=== PATIENT | male | born 1980 | race Two or more races ===

== ENCOUNTER 2023-11-20 00:34 | Emergency (ER) | payer MEDICARE, MEDICAID, SELFPAY ==
--- NOTE | ~2023-11-20 | XR_ITS ---
EXAMINATION: XR HAND, LEFT CLINICAL INFORMATION: Pain. COMPARISON: None available. TECHNIQUE: PA, lateral, and oblique views of the left hand. FINDINGS: The bones and soft tissues are normal. No fracture. Alignment is anatomic. Joint spaces are maintained. No erosions or soft tissue calcifications. XR/XR hand LT min 3V IMPRESSION: No significant abnormality identified.
[2023-11-20 00:36] VITALS: BP 129/78; PULSE 88; RESP 18; TEMP 37.2; O2SAT 100; BMI 22.3
[2023-11-20 00:53] LABS: MANUAL DIFF FLAG NO
[2023-11-20 00:58] LABS: Basophils Absolute Auto 0.1 X10*3/uL (0.0-0.2); Basophils Percent Auto 0.5 % (0-2); Eosinophils Absolute Auto 0.3 X10*3/uL (0.0-0.4); Eosinophils Percent Auto 2.3 % (0-4); Hematocrit 39.6 % (42.0-52.0); Imm Gran Abs Auto 0.04 X10*3/uL (0.00-0.03); Imm Gran Pct Auto 0.4 % (0.0-0.4); Lymphocytes Absolute Auto 3.1 X10*3/uL (1.2-4.9); Lymphocytes Percent Auto 28.9 % (20-40); Mean Corpuscular HGB Conc 32.8 g/dl (31.0-36.0); Mean Corpuscular Hemoglobin 28.3 pg (27.0-33.0); Mean Corpuscular Volume 86.1 fL (80.0-98.0); Mean Platelet Volume 9.6 fL (9.4-12.4); Monocytes Absolute Auto 1.3 X10*3/uL (0.1-1.2); Monocytes Percent Auto 12.2 % (2-11); Neutrophils Percent Auto 55.7 % (45-73); Platelet Count 248 X10*3/uL (160-400); Red Cell Distribution Width 13.6 % (11.0-16.0); White Blood Count 10.7 X10*3/uL (4.8-10.8)
[2023-11-20 01:08] LABS: Alanine Aminotransferase 292 U/L (0-40); Albumin Level 3.8 g/dL (3.5-5.0); Alkaline Phosphatase 69 U/L (39-117); Anion Gap 16 (12-20); Aspartate Amino Transferase 217 U/L (5-37); Bilirubin Total 0.6 mg/dL (0.0-1.0); Blood Urea Nitrogen 16 mg/dL (9-16); Carbon Dioxide 25 mmol/L (22-29); Chloride 101 mmol/L (96-108); Creatinine Clr Calc Pharmacy 99.8; Estimated Glomerular Filt Rate > 60; Glucose Random 100 mg/dL (60-115); Sodium 138 mmol/L (135-145); Total Protein 8.1 g/dL (6.5-8.0)
[2023-11-20 08:54] LABS: C Reactive Protein 0.64 mg/dL (< or = 0.50)
--- NOTE | 2023-11-20 08:59 | ED.GENADULT ---
HPI - General Adult General Chief complaint: Skin/Abscess/Foreign Body Stated complaint: abscess on hand Time Seen by Provider: 11/20/23 07:42 History of Present Illness HPI narrative: The patient is a 43-year-old male who has had redness and swelling in the left hand for about 3 or 4 days. He admits to IV drug use at that location several days ago. He says that he has been on methadone for a long time but has decided to go off methadone. He was trying to detox from methadone when he used heroin a few days ago and subsequently developed an infection in the left hand. He says the infection is in the region where he injected himself. He has had some purulent drainage. No fever, sweats, or chills. He does not feel that he has any symptoms going up the forearm. Related Data Previous Rx's Medication Instructions Recorded cephalexin 500 mg capsule 500 mg PO QID 10 days #40 caps 11/20/23 sulfamethoxazole 800 1 tab PO BID #20 tabs 11/20/23 mg-trimethoprim 160 mg tablet (Bactrim DS) Allergies Allergy/AdvReac Type Severity Reaction Status Date / Time Shellfish Allergy Unknown SWELLING Uncoded 06/16/20 16:52 Review of Systems Review of Systems: Yes all other systems are reviewed and are negative [facility] Social History Social History Advance Directives: No Advance Directives Information Provided: No Physical Exam ED Vital Signs: Vital Signs - 24 hr 11/20/23 00:36 11/20/23 10:00 Temperature 98.9 F 98.0 F Pulse Rate 88 69 Respiratory Rate 18 18 Blood Pressure 129/78 114/63 Pulse Oximetry 100 97 Oxygen Delivery Method Room Air BMI result Body Mass Index 22.3 Const Other: The patient is a somewhat vigorous looking but poorly kempt 43-year-old who seemed very sleepy. He had obvious erythema to the dorsum of the left hand on the radial side of the hand. HENMT Other: Face is symmetrical. Mucous membranes moist. Eyes Other: Pupils are small and equal, conjunctivae Neck Other: Moving his neck easily Resp Effort & Inspection: normal respiratory effort Auscultation: clear to auscultation bilaterally Cardio Other: No murmur appreciated Rate: regular rate Rhythm: regular rhythm Heart sounds: S1 normal heart sound present and S2 normal heart sound present Skin Other: There is erythema and swelling to the dorsum of the radial side of the left hand, essentially on the dorsum of the webspace between the thumb and index finger and extending somewhat towards the thenar eminence. There is a small area in the center of the swelling which exhibited a mild amount of purulent drainage Neuro Other: The patient has intact function of the fingers of the left hand. He seemed sleepy but otherwise neurologically intact Extrem Other: The patient has erythema on the dorsal radial aspect of the left hand at the back of the webspace between the thumb and the index finger with some erythema extending towards the thenar eminence. Despite this he is able to move all the joints of the fingers of the hand and the wrist normally. The erythema does not extend to the forearm. There is no lymphangitic streaking. He does not seem to have any compromise of his joint functions. Medications Administered Discontinued Medications Generic Name Dose Route Start Last Admin Trade Name Freq PRN Reason Stop Dose Admin Cephalexin HCl 1,000 mg 11/20/23 10:26 11/20/23 10:42 Cephalexin 500 Mg Capsule PO 11/20/23 10:27 1,000 mg ONCE ONE Administration Clonidine HCl 0.2 mg 11/20/23 08:58 11/20/23 09:13 Clonidine Hcl 0.2 Mg Tablet PO 11/20/23 08:59 0.2 mg ONCE ONE Administration Protocol Lidocaine HCl 1 appl 11/20/23 08:58 11/20/23 09:13 Lidocaine 4 % Cream Kit TOPICAL 11/20/23 08:59 1 appl ONCE ONE Administration Protocol Lidocaine HCl 2 ml 11/20/23 09:48 11/20/23 10:26 Lidocaine Hcl 1 % 20 Ml Vial INFILTRATI 11/20/23 09:49 2 ml ONCE ONE Administration Trimethoprim/Sulfamethoxazole 1 tab 11/20/23 10:26 11/20/23 10:42 Sulfamethox/Trimeth 800/160 Tablet PO 11/20/23 10:27 1 tab ONCE ONE Administration Medical Decision Making Medical Decision Making MDM Narrative: The patient is a 43-year-old who has a soft tissue infection on the dorsum of the left hand with some associated purulent drainage. The infection seems to be related to injection of heroin a few days ago. Denies fever, sweats, chills. There is no lymphangitis in the left arm. There are no findings to suggest any joint involvement or other surgical process in the hand related to this infection. I performed a bedside ultrasound that showed a small fluid collection near the site of purulent drainage. I then explained to the patient that I thought an incision and drainage procedure might be appropriate. The patient was amenable to this. The skin was prepped with Betadine. Topical anesthesia was attempted with LMX. Once the LM FX had been on for over 20 minutes I then re-prepped the skin with Betadine and injected 1% plain lidocaine in the area I thought most promising. I then made an incision about 2 cm in length with purulent drainage. The patient tolerated the procedure well. My overall impression was that the patient was not septic or toxic. There was no lymphangitis. I felt that this would be an infection which sat management with incision and drainage and oral antibiotics. The patient was given a dose of Bactrim and cephalexin. The purulence from the wound was cultured and sent to the lab. My plan had been to discharge the patient with prescriptions for Bactrim and cephalexin and the patient had seemed amenable to this approach. Unfortunately at the time of discharge the patient was quite sleepy and he became irate after the nurse woke him up. This somewhat threatening and rude and stormed out of the emergency department. His prescriptions had been sent to the pharmacy here at the hospital and it is not clear whether he was able to pick them up. Lab Data 11/20/23 00:48 11/20/23 00:48 Labs: Lab Results 11/20/23 Range/Units 00:48 WBC 10.7 (4.8-10.8) X10*3/uL RBC 4.60 (4.60-5.80) X10*6/uL Hgb 13.0 L (14.0-18.0) g/dl Hct 39.6 L (42.0-52.0) % MCV 86.1 (80.0-98.0) fL MCH 28.3 (27.0-33.0) pg MCHC 32.8 (31.0-36.0) g/dl RDW 13.6 (11.0-16.0) % Plt Count 248 (160-400) X10*3/uL MPV 9.6 (9.4-12.4) fL Immature Gran % (Auto) 0.4 (0.0-0.4) % Neut % (Auto) 55.7 (45-73) % Lymph % (Auto) 28.9 (20-40) % [place] % (Auto) 12.2 H (2-11) % Eos % (Auto) 2.3 (0-4) % Baso % (Auto) 0.5 (0-2) % Lymph # (Auto) 3.1 (1.2-4.9) X10*3/uL [place] # (Auto) 1.3 H (0.1-1.2) X10*3/uL Eos # (Auto) 0.3 (0.0-0.4) X10*3/uL Baso # (Auto) 0.1 (0.0-0.2) X10*3/uL Abs Immat Gran (auto) 0.04 H (0.00-0.03) X10*3/uL Absolute Neuts (auto) 6.0 (2.0-8.3) x10*3/uL Absolute Nucleated RBC 0.000 (0.0-0.012) X10*3/uL Nucleated RBC % (auto) 0.0 (0.0-0.2) /100WBC Sodium 138 (135-145) mmol/L Potassium 4.0 (3.3-5.1) mmol/L Chloride 101 (96-108) mmol/L Carbon Dioxide 25 (22-29) mmol/L Anion Gap 16 (12-20) BUN 16 (9-16) mg/dL Creatinine 0.98 (0.5-1.4) mg/dL Estim Creat Clear Calc 99.8 Estimated GFR > 60 Random Glucose 100 (60-115) mg/dL Calcium 9.0 (8.4-10.2) mg/dL Total Bilirubin 0.6 (0.0-1.0) mg/dL AST 217 H (5-37) U/L ALT 292 H (0-40) U/L Alkaline Phosphatase 69 (39-117) U/L C-Reactive Protein 0.64 H (< or = 0.50) mg/dL Total Protein 8.1 H (6.5-8.0) g/dL Albumin 3.8 (3.5-5.0) g/dL Discharge Plan Discharge Clinical Impression: Cellulitis of left hand excluding fingers and thumb Patient Disposition: Home, Self-Care Instructions: Cellulitis (ED) Additional Instructions: You have been prescribed two antibiotics to treat the infection in your left hand. Cephalexin should be taken 4 times a day, approximately every 6 hours. Sulfamethoxazole-trimethoprim (also known as Bactrim) should be taken 2 times a day, approximately every 12 hours. As much as you are able to try to keep your left hand elevated. If you are able to apply warm compresses to the infected area that can also be helpful. Keep it clean and covered with a Band-Aid. If at any point you feel things are getting worse rather than better please return to the emergency room for another evaluation. Please consider trying to get a primary care doctor. You may try the [facility]. Prescriptions: New sulfamethoxazole-trimethoprim [Bactrim DS] 800-160 mg tablet 1 tab PO BID Qty: 20 0RF cephalexin 500 mg capsule 500 mg PO QID 10 Days Qty: 40 0RF Referrals: [facility] [Provider Group] (left hand cellulitis) Interventions: ED Discharge Assessment Last Done: 11/20/23 11:39 Discharge Date/Time: 11/20/23 11:40
[2023-11-20] MEDS: Lidocaine 4 % Cream KIT 1 APPL TOPICAL (09:13)
[2023-11-20] MEDS: cloNIDine HCL 0.2 MG TABLET PO (09:13)
[2023-11-20 10:00] VITALS: BP 114/63; PULSE 69; RESP 18; TEMP 36.7; O2SAT 97
[2023-11-20] MEDS: Lidocaine HCl 1 % 20 ML VIAL INFILTRATI (10:26)
[2023-11-20] MEDS: cephALEXin 500 MG CAPSULE 1000 MG PO (10:42)
[2023-11-20] MEDS: Sulfamethox/Trimeth 800/160 TABLET 1 TAB PO (10:42)
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
== END 2023-11-20 11:40 | disposition home or self-care (01) ==
PROVIDERS: Emergency Provider Emergency Medicine
DX: L03.114 Cellulitis of left upper limb (principal)
CPT/HCPCS: 10060; 36415; 73130; 80053; 85025; 86140; 87070; 87147; 87205; 99283; 99284

== ENCOUNTER 2023-11-28 04:51 | Emergency (ER) | payer MEDICARE, MEDICAID, SELFPAY ==
[2023-11-28 05:15] VITALS: BP 149/88; PULSE 89; RESP 16; TEMP 36.4; O2SAT 98; BMI 23.7
--- NOTE | 2023-11-28 06:36 | ED_ITS ---
HPI - General Adult General Chief complaint: Dental/Oral Stated complaint: Dental pain Time Seen by Provider: 11/28/23 06:35 Source: patient Mode of arrival: ambulatory Limitations: no limitations History of Present Illness HPI narrative: Patient is a 43 year old assigned male at with no reported medical history presenting to the emergency department today with left lower dental pain. Patient states that over the last 3 days he has had left lower dental pain. Patient denies any dizziness, lightheadedness, abdominal pain, nausea, vomiting, fever, chills, blurry vision, double vision, loss of vision, chest pain, difficulty breathing, shortness of breath, back pain, night sweats, pain with urination, increased urinary frequency, increased urinary urgency, blood in his urine or stool, syncope or a near syncopal episode, recent trauma or falls, bowel incontinence, bladder incontinence, bowel retention, bladder retention, or any other complaints at this time. Onset (ago): day(s) (3) Severity: mild Severity scale (1-10): 3 Quality: aching and dull Pain Consistency: constant Relieving factors: none Exacerbating factors: none Associated symptoms: denies other symptoms Treatments prior to arrival: none Related Data Previous Rx's Medication Instructions Recorded cephalexin 500 mg capsule 500 mg PO QID 10 days #40 caps 11/20/23 sulfamethoxazole 800 1 tab PO BID #20 tabs 11/20/23 mg-trimethoprim 160 mg tablet (Bactrim DS) Allergies Allergy/AdvReac Type Severity Reaction Status Date / Time Shellfish Allergy Unknown SWELLING Uncoded 11/28/23 05:13 Review of Systems 2 Constitutional: Constitutional: Reports no additional constitutional complaints, Denies chills, Denies fever(s) and Denies night sweats Eyes: Eyes: Reports no additional eye complaints, Denies blurry vision, Denies change in vision, Denies diplopia, Denies eye discharge, Denies loss of vision and Denies eye pain ENT: Denies dizziness Comments: left lower dental pain Cardiovascular: Cardiovascular: Reports no additional cardiovascular complaints, Denies chest pain, Denies lightheadedness, Denies Loss of Consciousness and Denies dyspnea Respiratory: Respiratory: Reports no additional respiratory complaints and Denies dyspnea Gastrointestinal: Gastrointestinal: Reports no additional gastrointestinal complaints, Denies abdominal pain, Denies melena, Denies hematochezia, Denies change in bowel habits and Denies change in stool character Genitourinary: Genitourinary: Reports no additional male genitourinary complaints, Denies hematuria, Denies oliguria, Denies difficulty urinating, Denies dysuria, Denies urinary frequency, Denies urinary hesitancy, Denies urinary incontinence and Denies urinary urgency Musculoskeletal: Musculoskeletal: Reports no additional musculoskeletal complaints, Denies numbness and Denies tingling Neurologic: Denies dizziness, Denies loss of vision, Denies numbness and Denies tingling Psychiatric: Psychiatric: Reports no additional psychiatric complaints Endocrine: Endocrine: Reports no additional endocrine complaints Hematologic/Lymphatic: Hematologic/Lymphatic: Reports no additional hematologic/lymphatic complaints Allergic/Immunologic: Allergic/Immunologic: Reports no additional allergic/immunologic complaints PMFSH Past Medical History Attestation statement: The following information was validated with the patient. Source: old records reviewed and nursing notes reviewed Social History Social History Advance Directives: No Advance Directives Information Provided: No Physical Exam ED Vital Signs: Vital Signs - 24 hr 11/28/23 05:15 Temperature 97.6 F Pulse Rate 89 Respiratory Rate 16 Blood Pressure 149/88 H Pulse Oximetry 98 Oxygen Delivery Method Room Air BMI result Body Mass Index 23.7 Const General: cooperative, no acute distress, alert and awake Nutritional Appearance: well nourished Orientation/consciousness: patient oriented x3 Limitations: no limitations HENMT Head: Yes normal to inspection and Yes atraumatic Ears: hearing grossly normal bilaterally and external ears normal General nose exam: Normal external nose present, no nasal discharge noted and no epistaxis Face and sinus: Yes normal facial exam, No abrasion and No laceration Mouth: Normal oral and palatal mucosa present, no drooling and no muffled voice Teeth image: 2 1. dental cavity present Eyes General: appearance normal, both eyes and all related structures Periorbital: periorbital findings normal Eyelids: Yes eyelids normal Conjunctivae: conjunctivae normal Pupils: Equal, round and reactive pupils present EOM: EOMs intact bilaterally Neck Neck: Yes normal visual inspection, Yes full ROM and Yes no lymphadenopathy Chest Chest palpation & inspection: normal inspection of the chest Resp Effort & Inspection: normal respiratory effort and able to speak in complete sentences GI Inspection: Yes normal to inspection Neuro General: patient oriented x3 and moves all extremities Cranial nerves: Yes Equal, round and reactive pupils present Cognition (Neuro): normal cognition Motor exam (neuro): 5/5 motor strength present throughout Sensory Exam: Normal double simultaneous stimulation for sensation Coordination: [id number] test normal Extrem General: Yes normal to inspection, Yes full ROM and Yes capillary refill normal Psych Appearance: grossly normal Mental Status: mental status grossly normal Affect: normal affect Attitude: cooperative Thought process: Normal thought process present Thought content: Normal thought content present Insight: Good insight present (Psych) Medical Decision Making Medical Decision Making MDM Narrative: Patient is a 43 year old assigned male at with no reported medical history presenting to the emergency department today with left lower dental pain. Patient's physical exam showed a left lower dental cavity as well as minimal swelling but no fluctuance. I explained my physical exam findings to the patient. I answered all questions asked by the patient. I stressed the importance of the patient taking his medication as prescribed. I stressed the importance of the patient following up with his primary care provider and a dentist. I stressed the importance of the patient returning to the emergency department immediately if his symptoms were to worsen or if he were to develop any dizziness, shortness of breath, difficulty breathing, chest pain, blurry vision, loss of vision, nausea, vomiting, abdominal pain, fever, chills, back pain, or any other complaints. Patient verbalized agreement and understanding with this treatment plan and discharge. Differential Diagnosis Differential Diagnoses: The differential diagnosis associated with the presentation includes Dental pain Dental abscess Poor dentition Dental cavity Admission/Observation Consideration of admission/observation: Escalation of care including admission/observation considered Patient would have been admitted to the hospital had his clinical presentation warranted hospital admission. Prescription Management I considered prescription management with: Antibiotic (patient prescribed an antibiotic to cover for possible dental abscess) Discharge Plan Discharge Clinical Impression: Dental abscess, Pain, dental Patient Disposition: Home, Self-Care Instructions: Dental Abscess (ED), Toothache (ED) Additional Instructions: Follow up with your primary care provider and a dentist. Return to the emergency department immediately if your symptoms worsen or if you develop any dizziness, shortness of breath, difficulty breathing, chest pain, blurry vision, loss of vision, nausea, vomiting, abdominal pain, fever, chills, back pain, or any other complaints. Call or visit any of the clinics below to establish with a dentist: [facility] [address] [place] [address] [facility] [address] [facility], [address] [address] [place] [address] [facility] [address] [facility] [address] [place] [address] [facility] [address] [place] [address] [place] [address] [place] [address] Prescriptions: No Action sulfamethoxazole-trimethoprim [Bactrim DS] 800-160 mg tablet 1 tab PO BID Qty: 20 0RF cephalexin 500 mg capsule 500 mg PO QID 10 Days Qty: 40 0RF Referrals: [facility] [Provider Group] (Call to establish and follow up with a primary care provider. If you already have a primary care provider, please follow up with them.) [facility] [place] [Provider Group] (Call to establish and follow up with a primary care provider. If you already have a primary care provider, please follow up with them.) [facility] [Provider Group] (Call to establish and follow up with a primary care provider. If you already have a primary care provider, please follow up with them.) Print Language: Tamazight
== END 2023-11-28 06:50 | disposition home or self-care (01) ==
PROVIDERS: Emergency Provider Student in an Organized Health Care Education/Training Program
DX: K04.7 Periapical abscess without sinus (principal)
CPT/HCPCS: 99282; 99284

== ENCOUNTER 2023-11-30 18:45 | Emergency (ER) | payer MEDICARE, MEDICAID, SELFPAY ==
[2023-11-30 18:53] VITALS: BP 129/105; PULSE 102; RESP 18; TEMP 36.6; O2SAT 97; BMI 21.8
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
== END 2023-11-30 19:36 | disposition home or self-care (01) ==
LOC: HO.ED 19:28
PROVIDERS: Emergency Provider Emergency Medicine
DX: S09.90XA Unspecified injury of head, initial encounter (principal); Y00.XXXA Assault by blunt object, initial encounter; Y93.89 Activity, other specified; Y92.9 Unspecified place or not applicable; Y99.9 Unspecified external cause status
CPT/HCPCS: 12002; 99282; 99283

== ENCOUNTER 2023-12-07 01:34 | Emergency (ER) | payer MEDICARE, MEDICAID, SELFPAY ==
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
== END 2023-12-07 02:11 | disposition left against medical advice (07) ==
PROVIDERS: Emergency Provider Emergency Medicine
DX: Z53.21 Procedure and treatment not carried out due to patient leaving prior to being seen by health care provider (principal); Z48.00 Encounter for change or removal of nonsurgical wound dressing

== ENCOUNTER 2025-02-08 18:56 | Emergency (ER) | payer MEDICARE, SELFPAY ==
[2025-02-08 19:07] VITALS: BP 110/79; PULSE 95; RESP 16; TEMP 36.7; O2SAT 97; BMI 24.1
--- NOTE | 2025-02-08 19:08 | ED.GENADULT ---
HPI - General Adult General Chief complaint: General Medical Stated complaint: Needs methadone dose Time Seen by Provider: 02/08/25 19:53 Source: patient Limitations: no limitations History of Present Illness ED Provider: Oksana Reddy PA-C HPI narrative: 44-year-old male with a history of opiate use disorder on methadone presents requesting his dose. He states he missed his medication he last had his dose have BPH and and [place] yesterday. He takes 80 mg of methadone. Related Data Previous Rx's ?Medication ?Instructions ?Recorded cephalexin 500 mg capsule 500 mg PO QID 10 days #40 caps 11/20/23 sulfamethoxazole 800 1 tab PO BID #20 tabs 11/20/23 mg-trimethoprim 160 mg tablet (Bactrim DS) Allergies Allergy/AdvReac Type Severity Reaction Status Date / Time Shellfish Allergy Unknown SWELLING Uncoded 02/08/25 19:08 Review of Systems Review of Systems: Yes all other systems are reviewed and are negative Constitutional: Constitutional: Denies fatigue and Denies fever(s) Cardiovascular: Cardiovascular: Denies chest pain and Denies dyspnea Respiratory: Respiratory: Denies dyspnea Gastrointestinal: Gastrointestinal: Denies abdominal pain, Denies diarrhea, Denies nausea and Denies vomiting Endocrine: Endocrine: Denies fatigue [facility] Past Medical History Attestation statement: The following information was validated with the patient. Social History Social History Advance Directives: No Advance Directives Information Provided: No Do you have a plan to hurt others: No Plan Physical Exam ED Vital Signs: Vital Signs - 24 hr 02/08/25 19:07 Temperature 98.1 F Pulse Rate 95 Respiratory Rate 16 Blood Pressure 110/79 Pulse Oximetry 97 Oxygen Delivery Method Room Air BMI result Body Mass Index 24.1 Const Other: Alert Orientation/consciousness: patient oriented x3 Resp Effort & Inspection: normal respiratory effort Cardio Other: Normal peripheral perfusion Skin Other: Warm dry no rash Neuro General: patient oriented x3, gait normal, no focal motor deficits and CN's II-XI intact bilaterally Psych Other: Cooperative Course Course Course Narrative: RME, this is a rapid medical exam performed by Chan Rowe please refer to primary provider for complete H&P- 44 year old male presents for evaluation of I missed my methadone dose today. He receives his methadone at a [facility] clinic in [place]. He was last dosed yesterday and he reports that he takes 80mg daily. Plan to confirm last dose. Medications Administered Discontinued Medications Generic Name Dose Route Start Last Admin Trade Name Jaden PRN Reason Stop Dose Admin Methadone HCl 80 mg 02/08/25 20:10 02/08/25 20:20 Methadone Hcl 20 Mg/2 Ml Oral.Conc PO 02/08/25 20:11 80 mg ONCE ONE Administration Medical Decision Making Medical Decision Making [facility] Narrative: 44-year-old male with a history of opiate use disorder on methadone presents requesting his dose. He states he missed his medication he last had his dose have [facility] and and [place] yesterday. He takes 80 mg of methadone. Problem: Opiate use disorder History: Per patient I have considered the following differential diagnoses: Needs methadone Plan: his dose was verified we have the dosing letter for him, we will medicate and discharge. Discharge Plan Discharge Clinical Impression: Opiate abuse, continuous Patient Disposition: Home, Self-Care Additional Instructions: You received 80 mg of methadone from this emergency department. Prescriptions: No Action sulfamethoxazole-trimethoprim [Bactrim DS] 800-160 mg tablet 1 tab PO BID Qty: 20 0RF cephalexin 500 mg capsule 500 mg PO QID 10 Days Qty: 40 0RF Print Language: Senegalese
--- NOTE | 2025-02-08 19:21 | PC.NURSE ---
Patient called for his eval and not found in the WR at this time.
--- OUTSIDE RECORDS SUMMARY | 2025-02-08 19:42 | XMS_ITS | Patient Health Record ---
Author Organization [facility] Address [address], [place] [id number] Care Team Providers Care Meeting Manager Name Role Phone No, PCP Primary Care Provider Unavailabl e [facility] Unavailable [phone] Reason For Referral No Information Medications Medication SIG (Take, Route, Frequency, Duration) Notes Start Date End Date Status Minocin 100 mg 1 cap(s) orally every 12 hours. fINISH ALL YOUR MEDICNE EVEN IF YOU FEEL BETTER for 10 day(s) 08/19/2019 Active methadone 10 mg/mL 65 mg orally once a day [facility] Active Immunizations Vaccine Route Administration Date Status Comme nts PPD planted ID Intradermal 10/08/2011 Administered Plan Of Treatment No Information Insurance Providers Payer Name Payer Address Payer Phone Subscriber Number Group Number Insured Name Patient Relationship to Insured Coverage Start Date Coverage End Date [place] Inherited [employer] [address] [facility] [place] [address] [id number] Shailesh Rudd Self - patient is the insured [place] Medicaid Standard [address] [place] [address] [id number] [employer] Shailesh Rudd Self - patient is the insured [employer] [address] [place] [phone] [id number] Shailesh Rudd Self - patient is the insured Medical (General) History Medical History History ICD Code depression and anxiety
--- OUTSIDE RECORDS SUMMARY | 2025-02-08 19:42 | XMS_ITS | Encounter Summary ---
Author Organization [facility] Address [address] [place] [address] Care Team Providers Care Typesetting Machine Operator/Tender Name Role Phone Physician, No Pcp Primary Care Provider Unavaila ble Reason for Visit * Reason Comments Diarrhea FOR ABOUT 2-3 DAYS Encounter Details Date Type Department Care Team (Late st Contact Info) Description 02/07/2025 6:49 PM EDT - 02/07/2025 10:43 PM EDT Emergency [facility] Emergency [address] [place] [address] Diarrhea, unspecified type (Primary Dx) Discharge Disposition: Home or Self Care Social History Tobacco Use Types Packs/Day Years Used Date Smoking Tobacco: Former Cigarettes Q uit: 02/12/2014 Alcohol Use Standard Drinks/Week Comments No 0 (1 standard drink = 0.6 oz pur e alcohol) Sex and Gender Information Value Date Recorded Sex Assigned at Male 12/22/2024 10:05 AM EDT Legal Sex Male 6:17 PM EST Gender Identity Male 12/22/2024 10:05 AM EDT Sexual Orientation Straight 12/22/2024 10 :05 AM EDT documented as of this encounter Last Filed Vital Signs Vital Sign Reading Time Taken Comments Blood Pressure 135/76 02/07/2025 9:16 PM EDT Pulse 77 02/07/2025 9:16 PM EDT Temperature 36.7 ??C (98.1 ??F) 02/07/2025 9:16 PM ED T Respiratory Rate 16 02/07/2025 9:16 PM EDT Oxygen Saturation 97% 02/07/2025 9:16 PM EDT Inhaled Oxygen Concentration - - Weight 75.8 kg (167 lb) 02/07/2025 6:13 PM EDT Height 177.8 cm (5' 10 ) 02/07/2025 6:13 PM EDT Body Mass Index 23.96 02/07/2025 6:13 PM EDT documented in this encounter Functional Status * Are you deaf or do you have serious difficulty hearing? Answer Date of Assessment Author No 02/07/2025 7:08 PM EDT Yesi Haque RN * Are you blind or do you have serious difficulty seeing, even when wearing glasses? Answer Date of Assessment Author No 02/07/2025 7:08 PM EDT Yesi Haque RN * Do you have serious difficulty walking or climbing stairs? Answer Date of Assessment Author No 02/07/2025 7:08 PM EDT Yesi Haque RN * Do you have serious difficulty dressing or bathing? Answer Date of Assessment Author No 02/07/2025 7:08 PM EDT Yesi Haque RN * Because of a physical, mental, or emotional condition, do you have serious difficulty doing errandsalone such as visiting the doctor? Answer Date of Assessment Author No 02/07/2025 7:08 PM EDT Yesi Haque RN documented as of this encounter Mental Status * Because of a physical, mental, or emotional condition, do you have serious difficulty concentrating, remembering, or making decisions? (5 years old or older) Answer Entry Date Author No 02/07/2025 7:08 PM EDT Yesi Haque RN documented in this encounter Discharge Instructions * Discharge Instructions* TASH Cantu - 02/07/2025 10:22 PM EDT Thank you for choosing [facility]'s Emergency Department for your care today. Thankfully your laboratory evaluation and exam today are reassuring, there is no evidence of any acute emergent process associated with your diarrhea. Seeing as your workup was reassuring and you areable to tolerate fluids by mouth, at this time there is no indication for admission to the hospitalor continued ED observation, and it is safe to discharge you home. Please stay well hydrated and get plenty of rest Please follow up with your primary care physician for re-evaluation, additional management of your symptoms, and continued preventative care. If you do not have a primary care physician, please call the [facility] at [phone] [facility] a new primary care physician. Please return to the emergency department if you develop a sudden severe change in your symptoms, afever over 100.4, severe or recurrent vomiting, or a sudden increase in pain or if you experience any other new or worsening symptoms or concerns. * Attachments The following attachments cannot be sent through Care Everywhere. * Diarrhea (Puerto Rican) documented in this encounter Discharge Disposition Disposition Code Departure Means Destination Comment s Home or Self Care documented in this encounter Progress Notes * Brandt Acuna RN - 02/07/2025 6:12 PM EDT Diarrhea abd pain symptoms x 2 day. Pain described as burning. Denies n/v. Denies gu symptoms documented in this encounter Plan of Treatment Not on file documented as of this encounter Procedures Procedure Name Priority Date/Time Associated Diagnosis Comments RESPIRATORY VIRUS PANEL MOLECULAR STUDY STAT 02/07/2025 7:33 PM EDT CBC WITH AUTO DIFFERENTIAL STAT 02/07/2025 6:36 PM EDT CBC AND DIFFERENTIAL STAT 02/07/2025 6:36 PM EDT MAGNESIUM STAT 02/07/2025 6:36 PM EDT LIPASE STAT 02/07/2025 6:36 PM EDT COMPREHENSIVE METABOLIC PANEL STAT 02/07/2025 6:36 PM EDT documented in this encounter Results * Respiratory virus panel molecular study (02/07/2025 7:33 PM EDT) Pathologist [facility] Adenovirus Detection by PCR Not Detected Not Detected LAB MICROBIOLOGY METHOD 02/07/2025 8:27 PM EDT [facility] Influenza A PCR Not Detected Not Detected LAB MICROBIOLOGY METHOD 02/07/2025 8:27 PM EDT [facility] Influenza B PCR Not Detected Not Detected LAB MICROBIOLOGY METHOD 02/07/2025 8:27 PM EDT [facility] Coronavirus 229E Not Detected Not Detected LAB MICROBIOLOGY METHOD 02/07/2025 8:27 PM EDT [facility] Coronavirus HKU1 Not Detected Not Detected LAB MICROBIOLOGY METHOD 02/07/2025 8:27 PM EDT [facility] Coronavirus OC43 Not Detected Not Detected LAB MICROBIOLOGY METHOD 02/07/2025 8:27 PM EDT [facility] Coronavirus NL63 Not Detected Not Detected LAB MICROBIOLOGY METHOD 02/07/2025 8:27 PM EDT [facility] Parainfluenza Virus 1 Not Detected Not Detected LAB MICROBIOLOGY METHOD 02/07/2025 8:27 PM EDT [facility] Parainfluenza Virus 2 Not Detected Not Detected LAB MICROBIOLOGY METHOD 02/07/2025 8:27 PM EDT [facility] Parainfluenza Virus 3 Not Detected Not Detected LAB MICROBIOLOGY METHOD 02/07/2025 8:27 PM EDT [facility] Parainfluenza Virus 4 Not Detected Not Detected LAB MICROBIOLOGY METHOD 02/07/2025 8:27 PM EDT [facility] RSV PCR Not Detected Not Detected LAB MICROBIOLOGY METHOD 02/07/2025 8:27 PM EDT [facility] Human Metapneumovirus A and B Not Detected Not Detected LAB MICROBIOLOGY METHOD 02/07/2025 8:27 PM EDT [facility] Rhinovirus/Entero virus Not Detected Not Detected LAB MICROBIOLOGY METHOD 02/07/2025 8:27 PM EDT [facility] Bordetella pertussis Not Detected Not Detected LAB MICROBIOLOGY METHOD 02/07/2025 8:27 PM EDT [facility] Bordetella parapertussis Not Detected Not Detected LAB MICROBIOLOGY METHOD 02/07/2025 8:27 PM EDT [facility] Mycoplasma pneumo by PCR Not Detected Not Detected LAB MICROBIOLOGY METHOD 02/07/2025 8:27 PM EDT [facility] Chlamydia pneumoniae Not Detected Not Detected LAB MICROBIOLOGY METHOD 02/07/2025 8:27 PM EDT [facility] SARS COV-2 Not Detected Not Detected LAB MICROBIOLOGY METHOD 02/07/2025 8:27 PM EDT [facility] Swab Both anterior nares / Unknown Non-blood Collection / Unknown 02/07/2025 7:33 PM EDT 02/07/2025 7:37 PM EDT Narrative [facility] - 02/07/2025 8:27 PM EDT Testing was performed using the BEW Global Respiratory Pathogen PCR Assay. All results must be correlated with the clinical findings. Results should not be used as the sole basis for diagnosis. False Negative results may occur from the presence of sequence variants in the region targeted by the assay or the presence of inhibitors. Results may be affected by concurrent antiviral/antimicrobial therapy or levels of organisms that are below the limit of detection. [facility] LAB MICROBIOLOGY - GENERAL ORDER IKE Final Result [facility] [address] [place] [address], * (ABNORMAL) CBC auto differential (02/07/2025 6:36 PM EDT) WBC 6.8 4.8 - 10.8 K/mcL LAB HEMETOLOGY METHOD 02/07/2025 7:11 PM EDT [facility] RBC 4.90 4.50 - 5.50 M/mcL LAB HEMETOLOGY METHOD 02/07/2025 7:11 PM EDT [facility] Hemoglobin 13.6 13.5 - 17.5 g/dL LAB HEMETOLOGY METHOD 02/07/2025 7:11 PM EDT [facility] Hematocrit 42.2 42.0 - 54.0 % LAB HEMETOLOGY METHOD 02/07/2025 7:11 PM EDT [facility] MCV 85.4 79.0 - 98.0 FL LAB HEMETOLOGY [facility]07[facility] MCH 27.5 27.0 - 32.0 pcg LAB HEMETOLOGY METHOD [facility]/07[facility]2025 [facility] MCHC 32.2 32.0 - 37.0 g/dL LAB HEMETOLOGY METHOD [facility]07[facility]2025 [facility] RDW 12.8 11.0 - 15.0 % LAB HEMETOLOGY METHOD 02/07/2025 7:11 PM [facility] Platelets 169 130 - 400 K/mcL LAB HEMETOLOGY METHOD 02/07/2025 7:11 PM [facility] MPV 11.5(H) 7.0 - 11.0 FL LAB HEMETOLOGY METHOD 02/07/2025 7:11 PM [facility] NRBC 0.0 <1.0 % LAB HEMETOLOGY METHOD 02/07/2025 7:11 PM [facility] NRBC Absolute 0.00 <0.10 K/mcL LAB HEMETOLOGY METHOD 02/07/2025 7:11 PM [facility] Neutrophils Relative 53.2 % LAB HEMETOLOGY METHOD 02/07/2025 7:11 PM [facility] Lymphocytes Relative 28.7 % LAB HEMETOLOGY METHOD 02/07/2025 7:11 PM [facility] Monocytes Relative 14.9 % LAB HEMETOLOGY METHOD 02/07/2025 7:11 PM [facility] Eosinophils Relative 2.1 % LAB HEMETOLOGY METHOD 02/07/2025 7:11 PM [facility] Basophils Relative 0.7 % LAB HEMETOLOGY METHOD 02/07/2025 7:11 PM EDT [facility] Immature Granulocytes Relative 0.4 % LAB HEMETOLOGY METHOD 02/07/2025 7:11 PM EDT [facility] Neutrophils Absolute 3.60 1.50 - 7.00 K/mcL LAB HEMETOLOGY METHOD 02/07/2025 7:11 PM EDT [facility] Lymphocytes Absolute 1.94 1.00 - 5.00 K/mcL LAB HEMETOLOGY METHOD 02/07/2025 7:11 PM EDT [facility] Monocytes Absolute 1.01(H) 0.20 - 1.00 K/mcL LAB HEMETOLOGY METHOD 02/07/2025 7:11 PM EDT [facility] Eosinophils Absolute 0.14 0.00 - 0.50 K/mcL LAB HEMETOLOGY METHOD 02/07/2025 7:11 PM EDT [facility] Basophils Absolute 0.05 0.00 - 0.20 K/mcL LAB HEMETOLOGY METHOD 02/07/2025 7:11 PM EDT [facility] Immature Granulocytes Absolute 0.03 0.00 - 0.03 K/mcL LAB HEMETOLOGY METHOD 02/07/2025 7:11 PM EDT [facility] Blood Venous blood specimen / Unknown Venipuncture / Unknown 02/07/2025 6:36 PM EDT 02/07/2025 7:09 PM EDT us Shawn Coelho DO LAB BLOOD ORDERABLES Final Res ult [facility] [address] [place] [address], * Lipase (02/07/2025 6:36 PM EDT) Lipase 29 13 - 75 unit/L LAB CHEMISTRY METHOD 02/07/2025 7:11 PM EDT [facility] Blood Venous blood specimen / Unknown Venipuncture / Unknown 02/07/2025 6:36 PM EDT 02/07/2025 6:41 PM EDT Shawn Coelho DO LAB BLOOD ORDERABLES Final Res ult Performing Organization Address City/[facility]/ZIP Co de Phone Number [facility] [address] [place] [address], [place] [phone] * Magnesium (02/07/2025 6:36 PM EDT) Magnesium 2.2 1.9 - 2.6 mg/dL LAB CHEMISTRY METHOD 02/07/2025 7:11 PM EDT [facility] Blood Venous blood specimen / Unknown Venipuncture / Unknown 02/07/2025 6:36 PM EDT 02/07/2025 6:41 PM EDT Shawn Coelho DO LAB BLOOD ORDERABLES Final Res ult Performing Organization Address City/[facility]/ZIP Co de Phone Number [facility] [address] [place] [address], [place] [phone] * (ABNORMAL) Comprehensive metabolic panel (02/07/2025 6:36 PM EDT) Sodium 134 133 - 145 mmol/L LAB CHEMISTRY METHOD 02/07/2025 7:11 PM EDT [facility] Potassium 5.0 3.5 - 5.5 mmol/L LAB CHEMISTRY METHOD 02/07/2025 7:11 PM EDT [facility] Comment:Hemolysis present Chloride 103 96 - 110 mmol/L LAB CHEMISTRY METHOD 02/07/2025 7:11 PM EDT [facility] CO2 22 21 - 32 mmol/L LAB CHEMISTRY METHOD 02/07/2025 7:11 PM EDT [facility] Anion Gap 9 3 - 11 LAB CHEMISTRY METHOD 02/07/2025 7:11 PM [facility] Glucose 102(H) 70 - 100 mg/dL LAB CHEMISTRY METHOD 02/07/2025 7:11 PM [facility] BUN 19 5 - 25 mg/dL LAB CHEMISTRY METHOD 02/07/2025 7:11 PM [facility] Creatinine 1.14 0.70 - 1.30 mg/dL LAB CHEMISTRY METHOD 02/07/2025 7:11 PM [facility] eGFR 81 >=60 mL/min/1. 73m2 LAB CHEMISTRY METHOD 02/07/2025 7:11 PM [facility] Comment:Calculation based on the Chronic Kidney Disease Epidemiology Collaboration (CKD-EPI) equation refit without adjustment for race. BUN/Creatinine Ratio 16.7 LAB CHEMISTRY METHOD 02/07/2025 7:11 PM [facility] Calcium 9.2 8.5 - 10.5 mg/dL LAB CHEMISTRY METHOD 02/07/2025 7:11 PM [facility] AST (SGOT) 86(H) 10 - 42 unit/L LAB CHEMISTRY METHOD 02/07/2025 7:11 PM [facility] Comment:Hemolysis present ALT (SGPT) 96(H) 10 - 60 unit/L LAB CHEMISTRY METHOD 02/07/2025 7:11 PM [facility] Alkaline Phosphatase 85 42 - 121 unit/L LAB CHEMISTRY METHOD 02/07/2025 7:11 PM [facility] Total Protein 8.3(H) 6.0 - 8.0 g/dL LAB CHEMISTRY METHOD 02/07/2025 7:11 PM [facility] Albumin 3.9 3.2 - 5.0 g/dL LAB CHEMISTRY METHOD 02/07/2025 7:11 PM [facility] Total Bilirubin 0.5 0.0 - 1.4 mg/dL LAB CHEMISTRY METHOD 02/07/2025 7:11 PM EDT [facility] Blood Venous blood specimen / Unknown Venipuncture / Unknown 02/07/2025 6:36 PM EDT 02/07/2025 6:41 PM EDT us Shawn Coelho DO LAB BLOOD ORDERABLES Final Res ult [facility] [address] [place] [address], documented in this encounter Visit Diagnoses Diagnosis Diarrhea, unspecified type- Primary documented in this encounter Active and Recently Administered Medications Orders Medications Ordered That Sameer ht Not Have Been Administered Count Last Ordered Date First Ordered Date sodium chloride 0.9 % bolus 1,000 mL 1 01/28 documented in this encounter Additional Health Concerns Infection Onset Date Last Indicated Resolved Time Respiratory Rule-Out 02/07/2025 02/07/2025 025 8:27 PM EDT COVID-19 Rule-Out 02/07/2025 02/07/2025 02/07/2025 8:27 PM EDT documented as of this encounter Care Teams Typesetting Machine Operator/Tender Relationship Specialty Start Date End Date Physician, No Pcp PCP - General 12/22/24 documented as of this encounter
--- OUTSIDE RECORDS SUMMARY | 2025-02-08 19:42 | XMS_ITS | Clinical Summary ---
Author Organization [facility] Address [address] [place] [address] Phone Care Team Providers Care Still Tender Name Role Phone Physician, No Pcp Primary Care Provider Unavaila ble Allergies Active Allergy Reactions Criticality Noted Date Comments Shellfish Derived Unknown 12/22/2024 Medications No known medications Active Problems No known active problems Encounters Date Type Department Care Team Description 02/07/2025 6:49 PM EDT - 02/07/2025 10:43 PM EDT Emergency [facility] Emergency [address] [place] [phone] Diarrhea, unspecified type (Primary Dx) Discharge Disposition: Home or Self Care 12/22/2024 9:33 AM EDT - 12/22/2024 11:13 AM EDT Emergency [facility] Emergency [address] [place] [phone] Chung Magana DO Pain, dental (Primary Dx) Discharge Disposition: Home or Self Care from Last 3 Months Surgical History Surgery Date Site/Laterality Comments OTHER SURGICAL HISTORY PROCEDURE: ---- OTHER ----; COMMENT: no surgery Medical History Medical History Date Comments Anxiety and depression DX:Anxiet y and depression; COMMENT: was a former alcoholic, [employer] in [place], [place] Hepatitis C Family History Medical History Relation Name Comments Other: healthy Father Depression Maternal Grandmother Depression Mother Colon cancer Paternal Grandmother Relation Name Status Comments Father Maternal Grandmother Mother Paternal Grandmother Social History Tobacco Use Types Packs/Day Years [...] Orientation Straight 12/22/2024 10 :05 AM EDT Obstetrics History Last Filed Vital Signs Vital Sign Reading [...] Mass Index 23.96 02/07/2025 6:13 PM EDT Plan of Treatment Health Maintenance Due Date Last Done Comments Hepatitis A Vaccines (1 of 2 - Risk 2-dose series) 1999 Hepatitis B Vaccines (1 of 3 - 19+ 3-dose series) 1999 Cholesterol Screening (Lipid Panel) 09/01/2022 Depression Screening 09/01/2022 HIV Screening 09/01/2022 Hepatitis C Screening 09/01/2022 Medicare Annual Wellness Visit 09/01/2022 Social Influencers of Health Screening 09/01/2022 COVID-19 Vaccine (3 - 2023-2 5 season) 2024 08/29/2021, 06/13/2021 DTaP,Tdap,and Td Vaccines (3 - Td or Tdap) 11/16/2027 11/16/2017, 05/02/2008 Influenza Vaccine Completed 12/08/2024 HIB Vaccines Aged Out No longer eligi ble based on patient's age to complete this topic HPV Vaccines Aged Out No longer eligi ble based on patient's age to complete this topic IPV Vaccines Aged Out No longer eligi ble based on patient's age to complete this topic MMR Vaccines Aged Out No longer eligi ble based on patient's age to complete this topic Meningococcal ACWY Vaccine Aged Out N o longer eligible based on patient's age to complete this topic Meningococcal B Vaccine Aged Out No l onger eligible based on patient's age to complete this topic Pneumococcal Vaccine: Pediatrics (0 to 5 Years) and At-Risk Patients (6 to 64 Years) Aged Out No longer eligible b ased on patient's age to complete this topic RSV Immunization Patients Under 20 months Aged Out No longer eligible b ased on patient's age to complete this topic Varicella Vaccines Aged Out No longer eligible based on patient's age to complete this topic Procedures Procedure Name Priority Date/Time Associated Diagnosis Comments RESPIRATORY VIRUS PANEL MOLECULAR STUDY STAT 02/07/2025 7:33 PM EDT CBC WITH AUTO DIFFERENTIAL STAT 02/07/2025 6:36 PM EDT LIPASE STAT 02/07/2025 6:36 PM EDT MAGNESIUM STAT 02/07/2025 6:36 PM EDT COMPREHENSIVE METABOLIC PANEL STAT 02/07/2025 6:36 PM EDT CBC AND DIFFERENTIAL STAT 02/07/2025 6:36 PM EDT ECG ANNOTATED 12/24/2024 ECG 12-LEAD STAT 12/22/2024 9:21 AM EDT from Last 3 Months Results * Respiratory virus panel molecular study (02/07/2025 7:33 PM EDT) Adenovirus Detection by PCR Not Detected Not Detected LAB MICROBIOLOGY METHOD 02/07/2025 8:[address] [facility] Influenza A PCR Not Detected Not Detected LAB MICROBIOLOGY METHOD 02/07/2025 8:[address] [facility] Influenza B PCR Not Detected Not Detected LAB MICROBIOLOGY METHOD 02/07/2025 8:[address] [facility] Coronavirus 229E Not Detected Not Detected LAB MICROBIOLOGY METHOD 02/07/2025 8:[address] [facility] Coronavirus HKU1 Not Detected Not Detected LAB MICROBIOLOGY METHOD 02/07/2025 8:[address] [facility] Coronavirus OC43 Not Detected Not Detected LAB MICROBIOLOGY METHOD 02/07/2025 8:[address] [facility] Coronavirus NL63 Not Detected Not Detected LAB MICROBIOLOGY METHOD 02/07/2025 8:[address] [facility] Parainfluenza Virus 1 Not Detected Not Detected LAB MICROBIOLOGY METHOD 02/07/2025 8:[address] [facility] Parainfluenza Virus 2 Not Detected Not Detected LAB MICROBIOLOGY METHOD 02/07/2025 8:[address] [facility] Parainfluenza Virus 3 Not Detected Not Detected LAB MICROBIOLOGY METHOD 02/07/2025 8:[address] [facility] Parainfluenza Virus 4 Not Detected Not Detected LAB MICROBIOLOGY METHOD 02/07/2025 8:[address] [facility] RSV PCR Not Detected Not Detected LAB MICROBIOLOGY METHOD 02/07/2025 8:[address] [facility] Human Metapneumovirus A and B Not Detected Not Detected LAB MICROBIOLOGY METHOD 02/07/2025 8:[address] [facility] Rhinovirus/Entero virus Not Detected Not Detected LAB MICROBIOLOGY METHOD 02/07/2025 8:[address] [facility] Bordetella pertussis Not Detected Not Detected LAB MICROBIOLOGY METHOD 02/07/2025 8:[address] [facility] Bordetella parapertussis Not Detected Not Detected LAB MICROBIOLOGY METHOD 02/07/2025 8:[address] [facility] Mycoplasma pneumo by PCR Not Detected Not Detected LAB MICROBIOLOGY METHOD 02/07/2025 8:[address] [facility] Chlamydia pneumoniae Not Detected Not Detected LAB MICROBIOLOGY METHOD 02/07/2025 8:[address] [facility] SARS COV-2 Not Detected Not Detected LAB MICROBIOLOGY METHOD 02/07/2025 8:[address] [facility] Swab Both anterior nares / Unknown Non-blood Collection / Unknown 02/07/2025 7:33 PM EDT 02/07/2025 7:37 PM EDT [facility] - 02/07/2025 8:27 PM EDT Testing was performed using the Byliner Respiratory Pathogen PCR Assay. All results must [...] MICROBIOLOGY - GENERAL ORDER IKE Final Result [facility] [address] [place] [address], * (ABNORMAL) CBC auto differential (02/07/2025 6:36 PM EDT) WBC 6.8 4.8 - 10.8 K/mcL LAB HEMETOLOGY METHOD 02/07/2025 7:[address] [facility] RBC 4.90 4.50 - 5.50 M/mcL LAB HEMETOLOGY METHOD 02/07/2025 7:[address] [facility] Hemoglobin 13.6 13.5 - 17.5 g/dL LAB HEMETOLOGY METHOD 02/07/2025 7:[address] [facility] Hematocrit 42.2 42.0 - 54.0 % LAB HEMETOLOGY METHOD 02/07/2025 7:[address] [facility] MCV 85.4 79.0 - 98.0 FL LAB HEMETOLOGY METHOD 02/07/2025 7:[address] [facility] MCH 27.5 27.0 - 32.0 pcg LAB HEMETOLOGY METHOD [facility] MCHC 32.2 32.0 - 37.0 g/dL LAB HEMETOLOGY METHOD 02/07[facility]25 [facility] RDW 12.8 11.0 - 15.0 % LAB HEMETOLOGY METHOD [facility]/07[facility]25 [facility] Platelets 169 130 - 400 K/mcL LAB HEMETOLOGY METHOD 02/07/2025 7:[address] [facility] MPV 11.5(H) 7.0 - 11.0 FL LAB HEMETOLOGY METHOD 02/07/2025 7:[address] [facility] NRBC 0.0 <1.0 % LAB HEMETOLOGY METHOD 02/07[facility]2025 [facility] NRBC Absolute 0.00 <0.10 K/mcL LAB HEMETOLOGY METHOD 02/07/2025 7:[address] [facility] Neutrophils Relative 53.2 % LAB HEMETOLOGY METHOD 02/07/2025 7:[address] [facility] Lymphocytes Relative 28.7 % LAB HEMETOLOGY METHOD 02/07/2025 7:[address] [facility] Monocytes Relative 14.9 % LAB HEMETOLOGY METHOD 02/07/2025 7:[address] [facility] Eosinophils Relative 2.1 % LAB HEMETOLOGY METHOD 02/07/2025 7:[address] [facility] Basophils Relative 0.7 % LAB HEMETOLOGY METHOD 02/07/2025 7:[address] [facility] Immature Granulocytes Relative 0.4 % LAB HEMETOLOGY METHOD 02/07/2025 7:[address] [facility] Neutrophils Absolute 3.60 1.50 - 7.00 K/mcL LAB HEMETOLOGY METHOD 02/07/2025 7:[address] [facility] Lymphocytes Absolute 1.94 1.00 - 5.00 K/mcL LAB HEMETOLOGY METHOD 02/07/2025 7:[address] [facility] Monocytes Absolute 1.01(H) 0.20 - 1.00 K/mcL LAB HEMETOLOGY METHOD 02/07/2025 7:[address] [facility] Eosinophils Absolute 0.14 0.00 - 0.50 K/[facility] LAB HEMETOLOGY METHOD 02/07/2025 7:[address] [facility] Basophils Absolute 0.05 0.00 - 0.20 K/mcL LAB HEMETOLOGY METHOD 02/07/2025 7:[address] [facility] Immature Granulocytes Absolute 0.03 0.00 - 0.03 K/mcL LAB HEMETOLOGY METHOD 02/07/2025 7:[address] [facility] Blood Venous blood specimen / Unknown Venipuncture / Unknown 02/07/2025 6:36 PM EDT 02/07/2025 7:09 PM EDT us Shawn Coelho DO LAB BLOOD ORDERABLES Final Res ult [facility] [address] [place] [address], * Magnesium (02/07/2025 6:36 PM EDT) Magnesium 2.2 1.9 - 2.6 mg/dL LAB CHEMISTRY METHOD 02/07/2025 7:[address] [facility] Blood Venous blood specimen / Unknown Venipuncture / Unknown 02/07/2025 6:36 PM EDT 02/07/2025 6:41 PM EDT Shawn Coelho DO LAB BLOOD ORDERABLES Final Res ult [facility] [address] [place] [address], [place] [phone] * Lipase (02/07/2025 6:36 PM EDT) Lipase 29 13 - 75 unit/L LAB CHEMISTRY METHOD 02/07/2025 7:[address] [facility] Blood Venous blood specimen / Unknown Venipuncture / Unknown 02/07/2025 6:36 PM EDT 02/07/2025 6:41 PM EDT Shawn Coelho DO LAB BLOOD ORDERABLES Final Res ult Performing Organization Address [facility]/ZIP Co de Phone Number [facility] [address] [place] [address], [place] [phone] * (ABNORMAL) Comprehensive metabolic panel (02/07/2025 6:36 PM EDT) Pathologist [facility] Sodium 134 133 - 145 mmol/L LAB CHEMISTRY METHOD 02/07/2025 7:[address] [facility] Potassium 5.0 3.5 - 5.5 mmol/L LAB CHEMISTRY METHOD 02/07/2025 7:[address] [facility] Comment:Hemolysis present Chloride 103 96 - 110 mmol/L LAB CHEMISTRY METHOD 02/07/2025 7:[address] [facility] CO2 22 21 - 32 mmol/L LAB CHEMISTRY METHOD 02/07/2025 7:[address] [facility] Anion Gap 9 3 - 11 LAB CHEMISTRY METHOD 02/07/2025 7:[address] [facility] Glucose 102(H) 70 - 100 mg/dL LAB CHEMISTRY METHOD 02/07/2025 7:[address] [facility] BUN 19 5 - 25 mg/dL LAB CHEMISTRY METHOD 02/07/2025 7:[address] [facility] Creatinine 1.14 0.70 - 1.30 mg/dL LAB CHEMISTRY METHOD 02/07/2025 7:[address] [facility] eGFR 81 >=60 mL/min/1. 73m2 LAB CHEMISTRY METHOD 02/07/2025 7:[address] [facility] Comment:Calculation based on the Chronic Kidney Disease Epidemiology Collaboration (CKD-EPI) equation refit without adjustment for race. BUN/Creatinine Ratio 16.7 LAB CHEMISTRY METHOD 02/07/2025 7:[address] [facility] Calcium 9.2 8.5 - 10.5 mg/dL LAB CHEMISTRY METHOD 02/07/2025 7:[address] [facility] AST (SGOT) 86(H) 10 - 42 unit/L LAB CHEMISTRY METHOD 02/07/2025 7:[address] [facility] Comment:Hemolysis present ALT (SGPT) 96(H) 10 - 60 unit/L LAB CHEMISTRY METHOD 02/07/2025 7:[address] [facility] Alkaline Phosphatase 85 42 - 121 unit/L LAB CHEMISTRY METHOD 02/07/2025 7:[address] [facility] Total Protein 8.3(H) 6.0 - 8.0 g/dL LAB CHEMISTRY METHOD 02/07/2025 7:[address] [facility] Albumin 3.9 3.2 - 5.0 g/dL LAB CHEMISTRY METHOD 02/07/2025 7:[address] [facility] Total Bilirubin 0.5 0.0 - 1.4 mg/dL LAB CHEMISTRY METHOD 02/07/2025 7:[address] [facility] Blood Venous blood specimen / Unknown Venipuncture / Unknown 02/07/2025 6:36 PM EDT 02/07/2025 6:41 PM EDT us Shawn Coelho DO LAB BLOOD ORDERABLES Final Res ult Performing Organization Address City/[facility]/ZIP Co de Phone Number [facility] [address] [place] [address], * ECG-Annotated (12/24/2024) us Provider Onbase MD ECG ORDERABLES Final Result * ECG 12 lead (12/22/2024 9:21 AM EDT) Ventricular Rate ECG 81 BPM GEMUSE Atrial Rate 81 BPM GEMUSE P-R Interval 130 ms GEMUSE QRS Duration 74 ms GEMUSE Q-T Interval 368 ms GEMUSE QTc 427 ms GEMUSE P Wave Many 81 degrees GEMUSE R Many 98 degrees GEMUSE T Many 64 degrees GEMUSE ECG Interpretation Poor data quality, interpretation may be adversely affected Sinus rhythm with marked sinus arrhythmia Incomplete right bundle branch block Rightward axis Borderline ECG When compared with ECG of 09-JUN-2021 19:59, No significant change was found Confirmed by Marsha GIRLADO JOHN ([id number]) on 12/23/2024 9:40:05 AM GEMUSE 12/22/2024 9:21 AM EDT 12/23/2024 9:40 AM EDT us Chung Magana DO ECG ORDERABLES Final Resul t Performing Organization Address City/[facility]/ZIP Co de Phone Number GEMUSE from Last 3 Months Insurance MEDICARE Care Teams Still Tender Relationship Specialty Start Date End Date Physician, No Pcp PCP - General 12/22/24
--- OUTSIDE RECORDS SUMMARY | 2025-02-08 19:42 | XMS_ITS ---
Author Organization [facility] Address [address] [place] [phone] Care Team Providers Care Customer Service Driver Name Role Phone No, PCP Primary Care Provider Unavailabl e SHS, CHW Unavailable [phone] SHS, Nursing Unavailable [phone] REASON FOR VISIT office: intake Encounters Encounter Location Date Provider Diagnosis [facility] [address] [place] [address] [facility] [place] [phone] 01/24/2024 Nursing [facility] Plan Of Treatment No Information Progress Notes * Lou DELA CRUZoDOB:1979 (44 yo M)Acc No.[id number]:01/24/2024 Progress Notes Patient:?Shailesh DELA CRUZ Provider:?Joy [facility] :1980???Age:43 Y???Sex:Male Levi e:01/24/2024 Address:[address] [place] [phone] Pcp:PCP No Subjective: * Chief Complaints: * ???1. Office: intake. * Medical History:? Objective: * Vitals:? Assessment: Plan: * Treatment: * Images: Billing Information: * Visit Code:? * Procedure Codes:? * Electronic signature of Nurs [facility] on 02/08/2025 at 07:42 PM EDT Sign off status: Pending * Provider:?Provider [facility] Date:?01/24/2024 Generated for Pepe ng/Fachag/eTransmitting on:?02/08/2025 07:42 PM EDT
--- NOTE | 2025-02-08 19:49 | PC.NURSE ---
Contacted [facility], [place], [place]. Called at . Confirmed Methadone dose. Last dose Methadone 80mg on 02/07/2025 at 8:37am. No take home doses provided. Confirmed with Padmini via phone. Methadone maintenance clinic verification form completed and sent to pharmacy via fax.
--- NOTE | 2025-02-08 20:11 | HE.PHANOTE ---
Methadone verification form received. Patient received last dose 02/07/25 from [facility] in [place]
[2025-02-08] MEDS: methADONE HCl 20 MG/2 ML ORAL.CONC 80 MG PO (20:20)
[2025-02-08 20:32] VITALS: BP 110/79; PULSE 95; RESP 16; TEMP 36.7; O2SAT 97
--- NOTE | 2025-02-08 20:32 | PC.NURSE ---
PT MEDICATED PER MAR LAST DOSE LETTER PROVIDED
== END 2025-02-08 20:32 | disposition home or self-care (01) ==
PROVIDERS: Emergency Provider Emergency Medicine
DX: F11.20 Opioid dependence, uncomplicated (principal)
CPT/HCPCS: 99282; 99283

== ENCOUNTER 2025-04-09 09:54 | Emergency (ER) | payer MEDICARE, MEDICAID, SELFPAY ==
--- NOTE | 2025-04-09 | ECG_ITS ---
Test Reason : evaluate for prolong qt Blood Pressure : */* mmHG Vent. Rate : 70 BPM Atrial Rate : 70 BPM P-R Int : 148 ms QRS Dur : 76 ms QT Int : 424 ms P-R-T Axes : 80 92 75 degrees QTcB Int : 457 ms Normal sinus rhythm Rightward axis Borderline ECG When compared with ECG of 21-May-2019 04:30, No significant change was found Referred By: Danielle Howell Electronically Signed By: Benedicto Jacobson
[2025-04-09 09:56] VITALS: BP 122/93; PULSE 65; RESP 16; TEMP 36.4; O2SAT 100; BMI 25.1
--- NOTE | 2025-04-09 10:38 | ED.PSYCH ---
HPI - Psych General Chief Complaint: General Medical Stated Complaint: Not Feeling Well Time Seen by Provider: 04/09/25 10:23 Source: patient and old records reviewed Mode of arrival: ambulatory Limitations: no limitations History of Present Illness ED Provider: ASHWIN ABRAHAM Narrative: 44 yo male with PMH of opiate use disorder last took his methadone yesterday goes to [facility] [place]. He notes just a couple of weeks ago he was inpatient mental health at [facility] in [place]. He has family here so he states he came back to [place] but he has unstable housing and is very depressed due to his son dying 2 years ago. He states he needs mental health help and now wants to kill himself. He has no medical complaints. MD complaint: suicidal ideation and feels depressed Onset (ago): week(s) Duration: getting worse History of same: Yes Relieving factors: none Exacerbating factors: other Context: significant life stressor Associated psychiatric symptoms: depression and suicidal ideation Associated symptoms: denies other symptoms Treatments prior to arrival: none If self harm: admits thoughts of self harm Related Data Home Medications ?Medication ?Instructions ?Recorded ?Confirmed methadone 10 mg/mL oral concentrate 85 mg PO DAILY 04/09/25 04/09/25 Allergies Allergy/AdvReac Type Severity Reaction Status Date / Time Shellfish Allergy Unknown SWELLING Uncoded 04/09/25 09:57 Review of Systems Review of Systems: Constitutional : No Fever, No Chills ENT/Mouth : No Ear Pain, No Nasal Congestion, No sore throat Eyes: No Eye Pain, No Swelling, No Redness Cardiovascular : No Chest Pain, No SOB Respiratory : No Cough, No Sputum, No Dyspnea Gastrointestinal : No Nausea, No Vomiting, No Diarrhea, No Hematochezia, No Melena Genitourinary : No Dysuria, No Urinary Frequency, No Hematuria Musculoskeletal : No Myalgias Skin : No Skin Lesions, No rash Neuro : No Weakness, No Numbness, No Paresthesias, No Dizziness, No Headache Psych : positive Anxiety, positive Depression, positive SI no HI All other systems reviewed and are negative [facility] Past Medical History Attestation statement: The following information was validated with the patient. Source: old records reviewed Medical History Opiate use Social History Social History (Updated 04/09/25 @ 10:42 by ALISON Carrera Alcohol intake: current Alcohol intake frequency: 3 or more drinks per day Alcohol type: hard liquor Patient Tobacco Use Status: Tobacco use Unknown Smoked in Last 30 Days: Yes Use of substances other than those prescribed or required for medical reasons: No Advance Directives: No Advance Directives Information Provided: Yes Do you have a plan to hurt others: No Plan Physical Exam Vital Signs: Vital Signs: Last Vital Signs Temp 98.1 F 04/09/25 22:30 Pulse 87 04/09/25 22:30 Resp 18 04/09/25 22:30 BP 150/85 H 04/09/25 22:30 Pulse Ox 99 04/09/25 22:30 O2 Del Method Room Air 04/09/25 22:30 BMI result Body Mass Index 25.1 Appearance: Alert. Oriented X3. No acute distress. Eyes: Pupils equal, round and reactive to light. ENT: Pharynx normal. Neck: Normal inspection. Neck supple. CVS: Normal heart rate and rhythm. Pulses normal. Respiratory: No respiratory distress. Breath sounds normal. Abdomen: Soft and nontender. Skin: Skin warm and dry. Normal skin color. Normal skin turgor. Extremities: No lower extremity edema. No calf ttp Neuro: Oriented X 3. No motor deficit. No sensory deficit. CN2-12 intact Course Reevaluation(s) Reevaluation #1: Time: 23:33 Date: 04/09/25 Provider: TASH Devlin Physician observation ended at __[id number]___. transferred to psychiatric unit Time: 23:33 Medical Decision Making Medical Decision Making [facility] Narrative: 44 yo male with PMH of opiate use disorder here with c/o SI and depression due to poor social situation and the of his son 2 years ago he has no medical complaints other than needing his methadone dose. At this time will obtain basic labs and CARE team consult Differential Diagnosis Differential Diagnoses: The differential diagnosis associated with the presentation includes depression, SI, poor social support Admission/Observation Consideration of admission/observation: Escalation of care including admission/observation considered physician observation started at 1040am pending CARE team Consult Healthcare Provider Management of the patient was discussed with: Behavioral Health Provider Lab Data [facility] Lab Attestation statement: I reviewed the patient's lab results. 04/09/25 11:05 04/09/25 11:05 Labs: Lab Results 04/09/25 04/09/25 Range/Units 11:05 11:11 WBC 6.7 (4.8-10.8) X10*3/uL RBC 4.23 L (4.60-5.80) X10*6/uL Hgb 11.7 L (14.0-18.0) g/dl Hct 34.8 L (42.0-52.0) % MCV 82.3 (80.0-98.0) fL MCH 27.7 (27.0-33.0) pg MCHC 33.6 (31.0-36.0) g/dl RDW 13.4 (11.0-16.0) % Plt Count Not Reportable MPV Not Reportable Immature Gran % (Auto) 0.3 (0.0-0.4) % Neut % (Auto) 38.3 L (45-73) % Lymph % (Auto) 36.2 (20-40) % Jenkins % (Auto) 16.4 H (2-11) % Eos % (Auto) 8.3 H (0-4) % Baso % (Auto) 0.5 (0-2) % Lymph # (Auto) 2.4 (1.2-4.9) X10*3/uL Jenkins # (Auto) 1.1 (0.1-1.2) X10*3/uL Eos # (Auto) 0.6 H (0.0-0.4) X10*3/uL Baso # (Auto) 0.0 (0.0-0.2) X10*3/uL Abs Immat Gran (auto) 0.02 (0.00-0.03) X10*3/uL Absolute Neuts (auto) 2.6 (2.0-8.3) x10*3/uL Absolute Nucleated RBC 0.000 (0.0-0.012) X10*3/uL Nucleated RBC % (auto) 0.0 (0.0-0.2) /100WBC Smear Tech's Comments VERIFIED Sodium 139 (135-145) mmol/L Potassium 5.1 D (3.3-5.1) mmol/L Chloride 105 (96-108) mmol/L Carbon Dioxide 27 (22-29) mmol/L Anion Gap 12 (12-20) BUN 14 (9-16) mg/dL Creatinine 0.99 (0.5-1.4) mg/dL Estim Creat Clear Calc 101.4 Estimated GFR > 60 Random Glucose 85 (60-115) mg/dL Calcium 9.2 (8.4-10.2) mg/dL Magnesium 2.4 (1.6-2.6) mg/dL Total Bilirubin 0.4 (0.0-1.0) mg/dL Direct Bilirubin 0.1 (0.0-0.5) mg/dL AST 191 H (5-37) U/L ALT 161 H (0-40) U/L Alkaline Phosphatase 69 (39-117) U/L Total Protein 7.6 (6.5-8.0) g/dL Albumin 3.7 (3.5-5.0) g/dL Urine Color Dark Yellow Urine Appearance Clear Urine pH 5.5 (5.0-9.0) Ur Specific Vantage >= 1.030 H (1.005-1.025) Urine Protein Trace (Neg-Trace) mg/dL Urine Glucose (UA) Negative (Negative) mg/dL Urine Ketones Negative (Negative) mg/dL Urine Blood Negative (Negative) Urine Nitrite Negative (Negative) Ur Leukocyte Esterase Negative (Negative) Urine Opiates Screen POSITIVE H (Not Detect) Ur Buprenorphine Scrn Not Detected (Not Detect) ng/mL Ur Oxycodone Screen Not Detected (Not Detect) ng/mL Urine Methadone Screen Positive H (Not Detect) ng/mL Urine Fentanyl Screen POSITIVE H (Not Detect) Ur Barbiturates Screen Not Detected (Not Detect) Ur Phencyclidine Scrn Not Detected (Not Detect) Ur Amphetamines Screen Not Detected (Not Detect) U Benzodiazepines Scrn Not Detected (Not Detect) Urine Cocaine Screen POSITIVE H (Not Detect) U Marijuana (THC) Screen POSITIVE H (Not Detect) Ethyl Alcohol 13 mg/dL External Record Review External record reviewed: Outpatient record Social Determinants Patient?s care significantly limited by Social Determinants of Health including: Inadequate housing and Problems related to primary support group Discharge Plan Discharge Clinical Impression: Depression Patient Disposition: Xfer Psychiatric Hosp Transfer Details: To [facility] in [place], [place] Prescriptions: No Action methadone 10 mg/mL Concentrate 85 mg PO DAILY Rx Instructions: [facility] Interventions: Acute Care Transfer Worksheet (ED) Last Done: 04/09/25 22:30 Discharge Date/Time: 04/09/25 22:30 Print Language: Taiwanese
[2025-04-09 11:20] LABS: Hematocrit 34.8 % (42.0-52.0); Hemoglobin 11.7 g/dl (14.0-18.0); Imm Gran Abs Auto 0.02 X10*3/uL (0.00-0.03); Imm Gran Pct Auto 0.3 % (0.0-0.4); Lymphocytes Absolute Auto 2.4 X10*3/uL (1.2-4.9); MANUAL DIFF FLAG SCAN; Mean Corpuscular HGB Conc 33.6 g/dl (31.0-36.0); Mean Corpuscular Hemoglobin 27.7 pg (27.0-33.0); Mean Corpuscular Volume 82.3 fL (80.0-98.0); NRBC Abs Auto 0.000 X10*3/uL (0.0-0.012); NRBC Pct Auto 0.0 /100WBC (0.0-0.2); PLT CLUMP 1; Red Blood Count 4.23 X10*6/uL (4.60-5.80); SCAN SMEAR FLAG 1; White Blood Count 6.7 X10*3/uL (4.8-10.8)
--- NOTE | 2025-04-09 11:20 | PC.NURSE ---
Assumed care of patient from main ER at 1115, patient calm and cooperative, offering no complaints to this RN at this time
--- NOTE | 2025-04-09 11:23 | PC.NURSE ---
pt reports he gets methadone from [facility]
[2025-04-09 11:30] LABS: Cannabinoid Screen Urine POSITIVE (Not Detect)
[2025-04-09 11:34] LABS: Alanine Aminotransferase 161 U/L (0-40); Albumin Level 3.7 g/dL (3.5-5.0); Alkaline Phosphatase 69 U/L (39-117); Anion Gap 12 (12-20); Aspartate Amino Transferase 191 U/L (5-37); Blood Urea Nitrogen 14 mg/dL (9-16); Calcium 9.2 mg/dL (8.4-10.2); Carbon Dioxide 27 mmol/L (22-29); Chloride 105 mmol/L (96-108); Creatinine Clr Calc Pharmacy 101.4; Estimated Glomerular Filt Rate > 60; Magnesium 2.4 mg/dL (1.6-2.6); Potassium 5.1 mmol/L (3.3-5.1); Sodium 139 mmol/L (135-145); Total Protein 7.6 g/dL (6.5-8.0)
--- NOTE | 2025-04-09 11:40 | HE.PHANOTE ---
Methadone Received Methadone verification form from Ena. atient last received 85 mg on 04/08/25 @1822 from [facility] ([phone]). Ena spoke with Zohra at [facility]
[2025-04-09 11:43] LABS: Appearance Urine Clear; Glucose Urine UA Negative (Negative); PH 5.5 (5.0-9.0); Specific Gravity - Urine >= 1.030 (1.005-1.025)
--- OUTSIDE RECORDS SUMMARY | 2025-04-09 11:50 | XMS_ITS | Patient Health Record ---
Author Organization [facility] Address [address], [place] [id number] Care Team Providers Care Compensation And Hris Analyst Name Role Phone NO, PCP Primary Care Provider [facility] Unavailable [phone] Reason For Referral No Information Medications Medication SIG (Take, Route, Frequency, Duration) Notes Start Date End Date Status Minocin 100 mg 1 cap(s) orally every 12 hours. fINISH ALL YOUR MEDICNE EVEN IF YOU FEEL BETTER for 10 day(s) 08/19/2019 Active methadone 10 mg/mL 65 mg orally once a day [facility] Active Immunizations Vaccine Route Administration Date Status Comme nts PPD planted ID Intradermal 10/08/2011 Administered Plan Of Treatment No Information Insurance Providers Payer Name Payer Address Payer Phone Subscriber Number Group Number Insured Name Patient Relationship to Insured Coverage Start Date Coverage End Date [place] Medicare Part [place] [employer] [address] [facility] [address] [id number] Shailesh Rudd Self - patient is the insured [place] Medicaid Standard [address] [place] [address] [id number] [employer] Shailesh Rudd Self - patient is the insured [employer] [address] [place] [phone] [id number] Shailesh Rudd Self - patient is the insured Medical (General) History Medical History History ICD Code depression and anxiety
--- OUTSIDE RECORDS SUMMARY | 2025-04-09 11:50 | XMS_ITS | Clinical Summary ---
Author Organization [facility] Address [address] [place] [address] Phone Care Team Providers Care Home Visit Field Care Manager Name Role Phone Physician, No Pcp Primary Care Provider Unavaila ble Allergies Active Allergy Reactions Criticality Noted Date Comments Shellfish Derived Unknown 12/22/2024 Medications methadone (METHADOSE) 40 mg dispersible tablet Take 2 tablets (80 mg total) by mouth 1 (one) time each day. Max Daily Amount: 80 mg Active Active Problems No known active problems Encounters Date Type Department Care Team Description 02/15/2025 6:57 AM EDT - 02/15/2025 8:45 PM EDT Emergency [facility] Emergency [address] [place] [phone] Suicidal ideation (Primary Dx) Discharge Disposition: Short Term Hospital 02/07/2025 6:49 PM EDT - 02/07/2025 10:43 PM EDT Emergency [facility] Emergency [address] [place] [phone] Diarrhea, unspecified type (Primary Dx) Discharge Disposition: Home or Self Care from Last 3 Months Surgical History Surgery Date Site/Laterality Comments OTHER SURGICAL HISTORY PROCEDURE: ---- OTHER ----; COMMENT: no surgery Medical History Medical History Date Comments Anxiety and depression DX:Anxiet y and depression; COMMENT: was a former alcoholic, [facility] in [place], [place] Hepatitis C Methadone maintenance therap y patient ([facility] V24, [facility] V28) 01/2025 Family History Medical History Relation Name Comments [...] Sign Reading Time Taken Comments Blood Pressure 147/89 02/15/2025 2:38 PM EDT Pulse 77 02/15/2025 2:38 PM EDT Temperature 36.9 C (98.4 F) 02/15/2025 2:38 PM EDT Respiratory Rate 16 02/15/2025 2:38 PM EDT Oxygen Saturation 97% 02/15/2025 2:38 PM EDT Inhaled Oxygen Concentration - - Weight 75.8 kg (167 lb) 02/15/2025 7:02 AM EDT Height 177.8 cm (5' 10 ) 02/15/2025 7:02 AM EDT Body Mass Index 23.96 02/15/2025 7:02 AM EDT Plan of Treatment Health Maintenance Due [...] - 2023-2 5 season) 2024 08/29/2021, 06/13/2021 Influenza Vaccine (#1) 2025 12/08/2024 DTaP,Tdap,and Td Vaccines (3 - Td or Tdap) 11/16/2027 11/16/2017, 05/02/2008 HIB Vaccines Aged Out No longer eligi [...] 5 Years) and At-Risk Patients (6 to 49 Years) Aged Out No longer eligible b ased on patient's age to complete this topic RSV Immunization Patients Under 20 months Aged Out No longer eligible b ased on patient's age to complete this topic Varicella Vaccines Aged Out No longer eligible based on patient's age to complete this topic Procedures Procedure Name Priority Date/Time Associated Diagnosis Comments CBC WITH AUTO DIFFERENTIAL STAT 02/15/2025 10:10 AM EDT SALICYLATE LEVEL STAT 02/15/2025 10:1 0 AM EDT ACETAMINOPHEN LEVEL STAT 02/15/2025 1 0:10 AM EDT ETHANOL STAT 02/15/2025 10:10 AM EDT COMPREHENSIVE METABOLIC PANEL STAT 02/15/2025 10:10 AM EDT CBC AND DIFFERENTIAL STAT 02/15/2025 10:10 AM EDT METHADONE SCREEN, URINE STAT 02/15/2025 7:20 AM EDT PHENCYCLIDINE, URINE STAT 02/15/2025 7:20 AM EDT BUPRENORPHINE SCREEN, URINE STAT 02/15/2025 7:20 AM EDT DRUG ABUSE SCREEN 8A PANEL, URINE STAT 02/15/2025 7:20 AM EDT RESPIRATORY VIRUS PANEL MOLECULAR STUDY STAT 02/07/2025 7:33 PM EDT CBC WITH AUTO DIFFERENTIAL STAT 02/07/2025 6:36 PM EDT LIPASE STAT 02/07/2025 6:36 PM EDT MAGNESIUM STAT 02/07/2025 6:36 PM EDT COMPREHENSIVE METABOLIC PANEL STAT 02/07/2025 6:36 PM EDT CBC AND DIFFERENTIAL STAT 02/07/2025 6:36 PM EDT from Last 3 Months Results * (ABNORMAL) CBC auto differential (02/15/2025 10:10 AM EDT) Only the most recent of2 resultswithin the time period is included. [facility] WBC 5.7 4.8 - 10.8 K/mcL LAB HEMETOLOGY METHOD 02/15/2025 10:49 AM [facility] RBC 4.60 4.50 - 5.50 M/mcL LAB HEMETOLOGY METHOD 02/15/2025 10:49 AM [facility] Hemoglobin 12.6(L) 13.5 - 17.5 g/dL LAB HEMETOLOGY METHOD 02/15/2025 10:49 AM [facility] Hematocrit 39.7(L) 42.0 - 54.0 % LAB HEMETOLOGY METHOD 02/15/2025 10:49 AM [facility] MCV 87.3 79.0 - 98.0 FL LAB HEMETOLOGY METHOD 02/15/2025 10:49 AM [facility] MCH 27.7 27.0 - 32.0 pcg LAB HEMETOLOGY METHOD 02/15/2025 10:49 AM [facility] MCHC 31.7(L) 32.0 - 37.0 g/dL LAB HEMETOLOGY METHOD 02/15/2025 10:49 AM [facility] RDW 12.9 11.0 - 15.0 % LAB HEMETOLOGY METHOD 02/15/2025 10:49 AM [facility] Platelets 233 130 - 400 K/mcL LAB HEMETOLOGY METHOD 02/15/2025 10:49 AM [facility] MPV 10.7 7.0 - 11.0 FL LAB HEMETOLOGY METHOD 02/15/2025 10:49 AM [facility] NRBC 0.0 <1.0 % LAB HEMETOLOGY METHOD 02/15/2025 10:49 AM [facility] NRBC Absolute 0.00 <0.10 K/mcL LAB HEMETOLOGY METHOD 02/15/2025 10:49 AM [facility] Neutrophils Relative 61.2 % LAB HEMETOLOGY METHOD 02/15/2025 10:49 AM [facility] Lymphocytes Relative 23.6 % LAB HEMETOLOGY METHOD 02/15/2025 10:49 AM [facility] Monocytes Relative 12.4 % LAB HEMETOLOGY METHOD 02/15/2025 10:49 AM [facility] Eosinophils Relative 1.6 % LAB HEMETOLOGY METHOD 02/15/2025 10:49 AM [facility] Basophils Relative 0.7 % LAB HEMETOLOGY METHOD 02/15/2025 10:49 AM [facility] Immature Granulocytes Relative 0.5 % LAB HEMETOLOGY METHOD 02/15/2025 10:49 AM [facility] Neutrophils Absolute 3.50 1.50 - 7.00 K/mcL LAB HEMETOLOGY METHOD 02/15/2025 10:49 AM [facility] Lymphocytes Absolute 1.35 1.00 - 5.00 K/mcL LAB HEMETOLOGY METHOD 02/15/2025 10:49 AM [facility] Monocytes Absolute 0.71 0.20 - 1.00 K/[facility] LAB HEMETOLOGY METHOD 02/15/2025 10:49 AM EDT [facility] Eosinophils Absolute 0.09 0.00 - 0.50 K/[facility] LAB HEMETOLOGY METHOD 02/15/2025 10:49 AM EDT [facility] Basophils Absolute 0.04 0.00 - 0.20 K/[facility] LAB HEMETOLOGY METHOD 02/15/2025 10:49 AM EDT [facility] Immature Granulocytes Absolute 0.03 0.00 - 0.03 K/[facility] LAB HEMETOLOGY METHOD 02/15/2025 10:49 AM EDT [facility] Blood Venous blood specimen / Unknown Venipuncture / Unknown 02/15/2025 10:10 AM EDT 02/15/2025 10:29 AM EDT us Vidal Dumont MD LAB BLOOD ORDERABLES Final Resu lt Performing Organization Address City/[facility]/ZIP Co de Phone Number [facility] [address] [place] [address], [place] [phone] * Ethanol (02/15/2025 10:10 AM EDT) Pathologist [facility] Ethanol Level <3 0 - 10 mg/dL LAB CHEMISTRY METHOD 02/15/2025 11:11 AM EDT [facility] Blood Venous blood specimen / Unknown Venipuncture / Unknown 02/15/2025 10:10 AM EDT 02/15/2025 10:29 AM EDT us Vidal Dumont MD LAB BLOOD ORDERABLES Final Resu lt Performing Organization Address City/[facility]/ZIP Co de Phone Number [facility] [address] [place] [address], [place] [phone] * (ABNORMAL) Acetaminophen level (02/15/2025 10:10 AM EDT) Acetaminophen Level <2.0(L) 10.0 - 30.0 mcg/mL LAB CHEMISTRY METHOD 02/15/2025 11:59 AM EDT [facility] Blood Venous blood specimen / Unknown Venipuncture / Unknown 02/15/2025 10:10 AM EDT 02/15/2025 10:29 AM EDT us Vidal Dumont MD LAB BLOOD ORDERABLES Final Resu lt Performing Organization Address [facility] de Phone Number [facility] [address] [place] [address], [place] [phone] * (ABNORMAL) Salicylate level (02/15/2025 10:10 AM EDT) Salicylate Level <1.7(L) 2.0 - 29.0 mg/dL LAB CHEMISTRY METHOD 02/15/2025 11:11 AM EDT [facility] Blood Venous blood specimen / Unknown Venipuncture / Unknown 02/15/2025 10:10 AM EDT 02/15/2025 10:29 AM EDT us Vidal Dumont MD LAB BLOOD ORDERABLES Final Resu lt Performing Organization Address [facility] de Phone Number [facility] [address] [place] [address], [place] [phone] * (ABNORMAL) Comprehensive metabolic panel (02/15/2025 10:10 AM EDT) Only the most recent of2 resultswithin the time period is included. Sodium 141 133 - 145 mmol/L LAB CHEMISTRY METHOD 02/15/2025 11:11 AM EDT [facility] Potassium 4.0 3.5 - 5.5 mmol/L LAB CHEMISTRY METHOD 02/15/2025 11:11 AM EDT [facility] Chloride 106 96 - 110 mmol/L LAB CHEMISTRY METHOD 02/15/2025 11:11 AM [facility] CO2 25 21 - 32 mmol/L LAB CHEMISTRY METHOD 02/15/2025 11:11 AM [facility] Anion Gap 10 3 - 11 LAB CHEMISTRY METHOD 02/15/2025 11:11 AM [facility] Glucose 105(H) 70 - 100 mg/dL LAB CHEMISTRY METHOD 02/15/2025 11:11 AM [facility] BUN 11 5 - 25 mg/dL LAB CHEMISTRY METHOD 02/15/2025 11:11 AM [facility] Creatinine 0.89 0.70 - 1.30 mg/dL LAB CHEMISTRY METHOD 02/15/2025 11:11 AM [facility] eGFR 108 >=60 mL/min/1. 73m2 LAB CHEMISTRY METHOD 02/15/2025 11:11 AM [facility] Comment:Calculation based on the Chronic Kidney Disease Epidemiology Collaboration (CKD-EPI) equation refit without adjustment for race. BUN/Creatinine Ratio 12.4 LAB CHEMISTRY METHOD 02/15/2025 11:11 AM [facility] Calcium 9.2 8.5 - 10.5 mg/dL LAB CHEMISTRY METHOD 02/15/2025 11:11 AM [facility] AST (SGOT) 78(H) 10 - 42 unit/L LAB CHEMISTRY METHOD 02/15/2025 11:11 AM [facility] ALT (SGPT) 83(H) 10 - 60 unit/L LAB CHEMISTRY METHOD 02/15/2025 11:11 AM [facility] Alkaline Phosphatase 73 42 - 121 unit/L LAB CHEMISTRY METHOD 02/15/2025 11:11 AM [facility] Total Protein 7.5 6.0 - 8.0 g/dL LAB CHEMISTRY METHOD 02/15/2025 11:11 AM [facility] Albumin 3.3 3.2 - 5.0 g/dL LAB CHEMISTRY METHOD 02/15/2025 11:11 AM T [facility] Total Bilirubin 0.5 0.0 - 1.4 mg/dL LAB CHEMISTRY METHOD 02/15/2025 11:11 AM [facility] Blood Venous blood specimen / Unknown Venipuncture / Unknown 02/15/2025 10:10 AM EDT 02/15/2025 10:29 AM EDT us Vidal Dumont MD LAB BLOOD ORDERABLES Final Resu lt [facility] [address] [place] [address], [place] [phone] * (ABNORMAL) Drug abuse screen 8a panel, urine (02/15/2025 7:20 AM EDT) Amphetamine Screen, Ur Negative Negative LAB CHEMISTRY METHOD 5 9:28 AM [facility] Comment:Certain OTC medicati ons containing ephedrine, phenylephrine, pseudoephedrine and phenylpropanolamine can cause false positive results. Barbiturate Screen, Ur Negative Negative LAB CHEMISTRY METHOD 5 9:28 AM [facility] Benzodiazepine Screen, Ur Negative Negative LAB CHEMISTRY METHOD 5 9:28 AM [facility] Cocaine Screen, Ur Positive(A ) Negative LAB CHEMISTRY METHOD 5 9:28 AM [facility] Opiate Screen, Ur Negative Negative LAB CHEMISTRY METHOD 5 9:28 AM [facility] Cannabinoid (THC) Screen, Ur Positive(A ) Negative LAB CHEMISTRY METHOD 5 9:28 AM [facility] Comment:Specimens from patie nts taking pantoprazole sodium (Protonix) have been shown to produce false positive results. Oxycodone Screen, Ur Negative Negative LAB CHEMISTRY METHOD 5 9:28 AM EDT [facility] Fentanyl, Ur Positive(A ) Negative LAB CHEMISTRY METHOD 9:28 AM EDT [facility] Urine Urine specimen obtained by clean catch procedure / Unknown Non-blood Collection / Unknown 02/15/2025 7:20 AM EDT 02/15/2025 8:33 AM EDT [facility] - 02/15/2025 9:28 AM EDT Assay cutoffs: Amphetamines 1000 ng/mL Barbiturates 200 ng/mL Benzodiazepines 200 ng/mL Cocaine 300 ng/mL Fentanyl 1 ng/mL Opiates 300 ng/mL Oxycodone 100 ng/mL THC 50 ng/mL Semi-quantitative assay for screening purposes only. Unconfirmed screening result should not be used for non-medical purposes. *ALTERNATE METHOD CONFIRMATION DONE UPON REQUEST ONLY* us Vidal Dumont MD LAB URINE ORDERABLES Final Resu lt Performing Organization Address [facility] Co de Phone Number [facility] [address] [place] [address], [place] [phone] * Buprenorphine screen, urine (02/15/2025 7:20 AM EDT) [facility] Buprenorphine Screen Urine Negative Negative LAB CHEMISTRY METHOD 02/15/2025 9:09 AM EDT [facility] Urine Urine specimen obtained by clean catch procedure / Unknown Non-blood Collection / Unknown 02/15/2025 7:20 AM EDT 02/15/2025 8:33 AM EDT [facility] - 02/15/2025 9:09 AM EDT Assay cutoff 5 ng/mL Semi-quantitative assay for screening purposes only. Unconfirmed screening result should not be used for non-medical purposes. *ALTERNATE METHOD CONFIRMATION DONE UPON REQUEST ONLY* us Vidal Dumont MD LAB URINE ORDERABLES Final Resu lt [facility] [address] [place] [address], [place] [phone] * Methadone, urine (02/15/2025 7:20 AM EDT) Methadone Screen, Urine Negative Negative LAB CHEMISTRY METHOD 02/15/2025 9:09 AM EDT [facility] Comment: Assay cutoff 300 ng/mL Semi-quantitative assay for screening purposes only. Unconfirmed screening result should not be used for non-medical purposes. *ALTERNATE METHOD CONFIRMATION DONE UPON REQUEST ONLY* Urine Urine specimen obtained by clean catch procedure / Unknown Non-blood Collection / Unknown 02/15/2025 7:20 AM EDT 02/15/2025 8:33 AM EDT us Vidal Dumont MD LAB URINE ORDERABLES Final Resu lt Performing Organization Address City/[facility]/ZIP Co de Phone Number [facility] [address] [place] [address], [place] [phone] * Phencyclidine, urine (02/15/2025 7:20 AM EDT) PCP Scrn, Ur Negative Negative LAB CHEMISTRY METHOD 02/15/2025 9:09 AM EDT [facility] Comment: Assay cutoff 25 ng/mL Semi-quantitative assay for screening purposes only. Unconfirmed screening result should not be used for non-medical purposes. *ALTERNATE METHOD CONFIRMATION DONE UPON REQUEST ONLY* Urine Urine specimen obtained by clean catch procedure / Unknown Non-blood Collection / Unknown 02/15/2025 7:20 AM EDT 02/15/2025 8:33 AM EDT us Vidal Dumont MD LAB URINE ORDERABLES Final Resu lt [facility] [address] [place] [address], [place] [phone] * Respiratory virus panel molecular study (02/07/2025 7:33 PM EDT) [facility] Adenovirus Detection by PCR Not Detected Not Detected LAB MICROBIOLOGY METHOD 02/07/2025 8:27 PM EDT [facility] Influenza A PCR Not Detected Not Detected LAB MICROBIOLOGY METHOD 02/07/2025 8:27 PM EDT [facility] Influenza B PCR Not Detected Not Detected LAB MICROBIOLOGY METHOD 02/07/2025 8:27 PM EDT [facility] Coronavirus 229E Not Detected Not Detected LAB MICROBIOLOGY METHOD 02/07/2025 8:27 PM EDT [facility] Coronavirus HKU1 Not Detected Not Detected LAB MICROBIOLOGY METHOD 02/07/2025 8:27 PM EDT [facility] Coronavirus OC43 Not Detected Not Detected LAB MICROBIOLOGY METHOD 02/07/2025 8:27 PM EDT [facility] Coronavirus NL63 Not Detected Not Detected LAB MICROBIOLOGY METHOD 02/07/2025 8:27 PM EDT [facility] Parainfluenza Virus 1 Not Detected Not Detected LAB MICROBIOLOGY METHOD 02/07/2025 8:27 PM EDT [facility] Parainfluenza Virus 2 Not Detected Not Detected LAB MICROBIOLOGY METHOD 02/07/2025 8:27 PM EDT [facility] Parainfluenza Virus 3 Not Detected Not Detected LAB MICROBIOLOGY METHOD 02/07/2025 8:27 PM EDT [facility] Parainfluenza Virus 4 Not Detected Not Detected LAB MICROBIOLOGY METHOD 02/07/2025 8:27 PM EDT [facility] RSV PCR Not Detected Not Detected LAB MICROBIOLOGY METHOD 02/07/2025 8:27 PM EDT [facility] Human Metapneumovirus A and B Not Detected Not Detected LAB MICROBIOLOGY METHOD 02/07/2025 8:27 PM EDT [facility] Rhinovirus/Entero virus Not Detected Not Detected LAB MICROBIOLOGY METHOD 02/07/2025 8:27 PM EDT [facility] Bordetella pertussis Not Detected Not Detected LAB MICROBIOLOGY METHOD 02/07/2025 8:27 PM EDT [facility] Bordetella parapertussis Not Detected Not Detected LAB MICROBIOLOGY METHOD 02/07/2025 8:27 PM EDT [facility] Mycoplasma pneumo by PCR Not Detected Not Detected LAB MICROBIOLOGY METHOD 02/07/2025 8:27 PM EDT [facility] Chlamydia pneumoniae Not Detected Not Detected LAB MICROBIOLOGY METHOD 02/07/2025 8:27 PM EDT [facility] SARS COV-2 Not Detected Not Detected LAB MICROBIOLOGY METHOD 02/07/2025 8:27 PM EDT [facility] Swab Both anterior nares / Unknown Non-blood Collection / Unknown 02/07/2025 7:33 PM EDT 02/07/2025 7:37 PM EDT Narrative [facility] - 02/07/2025 8:27 PM EDT Testing was performed using the [employer] Respiratory Pathogen PCR Assay. All results must [...] MICROBIOLOGY - GENERAL ORDER IKE Final Result [facility] [address] [place] [address], * Magnesium (02/07/2025 6:36 PM EDT) Magnesium 2.2 1.9 - 2.6 mg/dL LAB CHEMISTRY METHOD 02/07/2025 7:11 PM EDT [facility] Blood Venous blood specimen / Unknown Venipuncture / Unknown 02/07/2025 6:36 PM EDT 02/07/2025 6:41 PM EDT us Shawn Coelho DO LAB BLOOD ORDERABLES Final Res ult Performing Organization Address City/[facility]/ZIP Co de Phone Number [facility] [address] [place] [address], [place] [phone] * Lipase (02/07/2025 6:36 PM EDT) Lipase 29 13 - 75 unit/L LAB CHEMISTRY METHOD 02/07/2025 7:11 PM EDT [facility] Blood Venous blood specimen / Unknown Venipuncture / Unknown 02/07/2025 6:36 PM EDT 02/07/2025 6:41 PM EDT Shawn Coelho DO LAB BLOOD ORDERABLES Final Res ult Performing Organization Address [facility]/ZIP Co de Phone Number [facility] [address] [place] [address], [place] [phone] from Last 3 Months Insurance MEDICARE Care Teams Home Visit Field Care Manager Relationship Specialty Start Date End Date Physician, No Pcp PCP - General 12/22/24
--- NOTE | 2025-04-09 12:17 | MHC.CARE ---
Pt will be a Dual DX bedsearch.
[2025-04-09 15:16] VITALS: BP 127/63; PULSE 71; RESP 14; TEMP 36.8; O2SAT 98
--- NOTE | 2025-04-09 20:18 | MHC.CARE ---
Pt accepted to [address] [address] for tonight. ETA 12am midnight, accepting Dr is Dr. Randall House. No N2N required.
[2025-04-09 22:30] VITALS: BP 150/85; PULSE 87; RESP 18; TEMP 36.7; O2SAT 99
== END 2025-04-09 22:30 ==
PROVIDERS: Emergency Provider Emergency Medicine
DX: F32.A Depression, unspecified (principal); R45.851 Suicidal ideations; F41.9 Anxiety disorder, unspecified; F11.20 Opioid dependence, uncomplicated
CPT/HCPCS: 36415; 80048; 80076; 80307; 81003; 83735; 85025; 93005; 99285; S9485

== ENCOUNTER → 2025-04-09 14:35 | Outpatient (BNV) | payer MEDICARE, MEDICAID, SELFPAY | PROVIDERS: Emergency Provider Emergency Medicine; Visit Provider Internal Medicine Cardiovascular Disease | DX: Z13.6 Encounter for screening for cardiovascular disorders (principal) | CPT/HCPCS: 93010 ==